=== PATIENT | male | born 1945 | race Caucasian/White ===

== ENCOUNTER 2019-06-20 08:59 | Emergency (ER) | payer BC, MEDICARE | END 2019-06-20 09:44 | disposition home or self-care (01) | LOC: MADERS 08:59 | DX: H10.13 Acute atopic conjunctivitis, bilateral (principal); E78.5 Hyperlipidemia, unspecified; E78.00 Pure hypercholesterolemia, unspecified; I10 Essential (primary) hypertension | CPT/HCPCS: 96372; 99282; J1040 ==

== ENCOUNTER 2019-12-30 13:15 | Emergency (ER) | payer MEDICARE ==
[2019-12-30] MEDS ORDERED: Adacel (T-DAP) 0.5 ML SYRINGE ONE (13:51)
--- NOTE | 2019-12-30 14:45 | RAD ---
RADIOGRAPH LEFT FOOT 3 VIEWS: Date: 12/30/2019 HISTORY: 74-year-old male with acute traumatic left foot pain. FINDINGS: Increased plantar arch. Hammertoes. No dislocation. No acute fracture identified. IMPRESSION: No acute fracture identified. POS: [facility]
== END 2019-12-30 15:05 | disposition home or self-care (01) ==
LOC: MADERS 13:15
DX: S91.312A Laceration without foreign body, left foot, initial encounter (principal); I10 Essential (primary) hypertension; E78.5 Hyperlipidemia, unspecified; E78.00 Pure hypercholesterolemia, unspecified; V04.90XA Pedestrian on foot injured in collision with heavy transport vehicle or bus, unspecified whether traffic or nontraffic accident, initial encounter
CPT/HCPCS: 12002; 90715

== ENCOUNTER 2020-01-13 13:01 | Emergency (ER) | payer MEDICARE | END 2020-01-13 13:25 | disposition home or self-care (01) | LOC: MADERS 13:01 | DX: S91.312D Laceration without foreign body, left foot, subsequent encounter (principal); E78.5 Hyperlipidemia, unspecified; E78.00 Pure hypercholesterolemia, unspecified; I10 Essential (primary) hypertension; X58.XXXD Exposure to other specified factors, subsequent encounter ==

== ENCOUNTER 2021-08-29 09:50 | Emergency (ER) | payer MEDICARE ==
[2021-08-29 10:44] LABS: #Lymphocytes 0.8 thou/uL (1.20-3.40); #Monocytes 0.4 thou/uL (0.11-0.59); #Neutrophils 7.2 thou/uL (1.40-6.50); %Basophils 0.3 % (0.0-1.0); %Lymphocytes 9.7 % (21.0-51.0); %Monocytes 4.4 % (0.0-10.0); %Neutrophils 85.6 % (42.0-75.0); Hemoglobin 14.8 g/dL (14.0-18.0); Mean Corpuscular HGB CONC 32.5 g/dL (32.0-36.0); Mean Corpuscular Hemoglobin 27.4 pg (27.0-31.0); Mean Corpuscular Volume 84.3 fL (78.0-98.0); Mean Platelet Volume 8.9 fL (7.4-10.4); Platelet Count 152 thou/uL (130-400); RBC Distribution Width 12.3 % (11.5-14.5); Red Blood Cell (RBC) Count 5.41 mill/uL (4.70-6.10); White Blood Cell (WBC) Count 8.4 thou/uL (4.8-10.8)
[2021-08-29 10:46] LABS: ALT (SGPT) 25 U/L (8-55); AST (SGOT) 45 U/L (5-34); Albumin 3.6 g/dL (3.4-4.8); Alkaline Phosphatase 57 U/L (40-110); Anion Gap 16 mmol/L (10-20); BUN (Urea Nitrogen) 14 mg/dL (8.4-25.7); Bilirubin, Total 0.8 mg/dL (0.2-1.2); Calc. Creatinine Clearance 0 mL/min (70-130); Calcium 9.3 mg/dL (7.8-10.44); Carbon Dioxide 23 mmol/L (23-31); Chloride 99 mmol/L (98-107); Globulin 3.3 g/dL (2.4-3.5); Glucose 129 mg/dL (83-110); Magnesium 1.9 mg/dL (1.6-2.6); Potassium 3.7 mmol/L (3.5-5.1); Protein, Total 6.9 g/dL (5.8-8.1); Sodium 134 mmol/L (136-145)
[2021-08-29 11:04] LABS: CKMB 1.3 ng/mL (0-6.6)
[2021-08-29 11:21] LABS: Bilirubin Negative (Negative); Blood, Urine Trace (Negative); Clarity Clear (Clear); Glucose, Urine (Dipstick) 500 mg/dL (Negative); Ketone, Urine 15 mg/dL (Negative); Leukocyte Negative (Negative); Nitrite Negative (Negative); Protein, Urine (Dipstick) 100 mg/dL (Neg-Trace); Specific Gravity, Urine 1.025 (1.005-1.030); Urobilinogen 0.2 mg/dL (Less than 2); pH, Urine 5.5 (5.0-9.0)
[2021-08-29 11:22] LABS: Bacteria/HPF Rare-Few HPF (None Seen); RBC/HPF 0-3 HPF (0-3)
[2021-08-29 11:36] LABS: SARS-CoV-2 NAA Rapid Test DETECTED (NotDetected)
[2021-08-29] MEDS ORDERED: Aspirin Chewable 81 MG TAB ONE (13:14)
[2021-08-29] MEDS ORDERED: Enoxaparin Sodium 40 MG/0.4 ML SYRINGE ONE (13:14)
[2021-08-29] MEDS ORDERED: Dextrose 5 % And 0.9 % NaCl 1,000 ML ONE (13:28)
[2021-08-29] MEDS ORDERED: Iopamidol 370 76% 100 ML VIAL ONE (13:30)
[2021-08-29] MEDS ORDERED: Acetaminophen 500 MG TAB ONE (13:46)
[2021-08-29 14:03] LABS: CKMB 1.6 ng/mL (0-6.6)
== END 2021-08-29 15:27 | disposition short-term general hospital (02) ==
LOC: MADERS 09:50
DX: U07.1 COVID-19 (principal); J12.82 Pneumonia due to coronavirus disease 2019; S00.93XA Contusion of unspecified part of head, initial encounter; R41.82 Altered mental status, unspecified; R77.8 Other specified abnormalities of plasma proteins; K76.0 Fatty (change of) liver, not elsewhere classified; E11.649 Type 2 diabetes mellitus with hypoglycemia without coma; K40.91 Unilateral inguinal hernia, without obstruction or gangrene, recurrent; R94.6 Abnormal results of thyroid function studies; W19.XXXA Unspecified fall, initial encounter; E78.5 Hyperlipidemia, unspecified; E78.00 Pure hypercholesterolemia, unspecified; I10 Essential (primary) hypertension; Z79.84 Long term (current) use of oral hypoglycemic drugs; Z79.899 Other long term (current) drug therapy
CPT/HCPCS: 36416; 70450; 71260; 72125; 74177; 80053; 81003; 81015; 82553; 83605; 83735; 83880; 84443; 84484; 85025; 93005; 94760; 96372; 99292; 36415-59; J1650; J7042; Q9967; U0002

== ENCOUNTER 2023-07-03 19:44 | Emergency (ER) | payer OTHER, MEDICARE ==
[2023-07-03 20:24] LABS: #Basophils 0.1 thou/uL (0.0-0.2); #Eosinphils 0.3 thou/uL (0.0-0.7); #Lymphocytes 1.7 thou/uL (1.20-3.40); #Monocytes 0.5 thou/uL (0.11-0.59); #Neutrophils 3.7 thou/uL (1.40-6.50); %Basophils 1.8 % (0.0-1.0); %Eosinophils 4.9 % (0.0-10.0); %Monocytes 8.6 % (0.0-10.0); %Neutrophils 57.7 % (42.0-75.0); Hematocrit 39.7 % (42.0-52.0); Hemoglobin 12.9 g/dL (14.0-18.0); Mean Corpuscular HGB CONC 32.4 g/dL (32.0-36.0); Mean Corpuscular Volume 89.6 fl (78.0-98.0); Mean Platelet Volume 10.6 fL (7.4-10.4); Platelet Count 142 10x3/uL (130-400); Red Blood Cell (RBC) Count 4.43 mill/uL (4.70-6.10); White Blood Cell (WBC) Count 6.3 10x3/uL (4.8-10.8)
[2023-07-03 20:45] LABS: ALT (SGPT) 21 U/L (8-55); AST (SGOT) 21 U/L (5-34); Albumin 4.1 g/dL (3.4-4.8); Alkaline Phosphatase 65 U/L (40-110); Anion Gap 15 mmol/L (10-20); BUN (Urea Nitrogen) 13 mg/dL (8.4-25.7); Bilirubin, Total 0.4 mg/dL (0.2-1.2); Calc. Creatinine Clearance 0 mL/min (70-130); Calcium 9.5 mg/dL (7.8-10.44); Carbon Dioxide 24 mmol/L (23-31); Chloride 103 mmol/L (98-107); Estimated GFR 90; Globulin 2.5 g/dL (2.4-3.5); Glucose 144 mg/dL (83-110); Potassium 3.9 mmol/L (3.5-5.1); Protein, Total 6.6 g/dL (5.8-8.1); Sodium 138 mmol/L (136-145); Troponin I 0.015 ng/mL (< 0.028)
== END 2023-07-03 23:15 | disposition home or self-care (01) ==
LOC: MADERS 19:44
DX: S09.90XA Unspecified injury of head, initial encounter (principal); I11.0 Hypertensive heart disease with heart failure; I50.9 Heart failure, unspecified; E11.9 Type 2 diabetes mellitus without complications; E78.00 Pure hypercholesterolemia, unspecified; W18.00XA Striking against unspecified object with subsequent fall, initial encounter; Y93.01 Activity, walking, marching and hiking; Y92.512 Supermarket, store or market as the place of occurrence of the external cause; Z95.0 Presence of cardiac pacemaker; Z79.82 Long term (current) use of aspirin; Z79.84 Long term (current) use of oral hypoglycemic drugs; Z79.899 Other long term (current) drug therapy
CPT/HCPCS: 70450; 71045; 72125; 72128; 80053; 84484; 85025; 93005